=== PATIENT | female | born 1985 | race Caucasian/White ===

== ENCOUNTER 2017-02-17 15:12 | Emergency (ER) | payer BC, OTHER ==
[2017-02-17 16:24] VITALS: BP 103/56
--- NOTE | 2017-02-17 17:08 | UC ---
Throat Pain/Nasal Wilmer HPI - HPI Summary HPI Summary: 31 YEAR OLD FEMALE PRESENTS WITH COMPLAINS SINUS CONGESTION AND HEADACHE. - History of Current Complaint Chief Complaint: UCHeadache Stated Complaint: HEAD COLD Time Seen by Provider: 02/17/17 17:03 Hx Obtained From: Patient Hx Last Menstrual Period: 02/02/17 Onset/Duration: Sudden Onset Severity: Moderate Pain Scale Used: 0-10 Numeric - 5 Cough: Nonproductive - Allergies/Home Medications Allergies/Adverse Reactions: Allergies Allergy/AdvReac Type Severity Reaction Status Date / Time No Known Allergies Allergy Verified 08/21/12 12:03 Home Medications: Home Medications Sertraline* [Zoloft*] 50 mg PO BEDTIME 02/17/17 [History Confirmed 02/17/17] PMH/Surg Hx/FS Hx/Imm Hx Previously Healthy: Yes - Surgical History Surgical History: None - Social History Alcohol Use: None Substance Use Type: None Smoking Status (MU): Never Smoked Tobacco - Immunization History Most Recent Tetanus Shot: may, 2012 Review of Systems Constitutional: Negative Skin: Negative Eyes: Negative ENT: Negative Respiratory: Negative Cardiovascular: Negative Gastrointestinal: Negative Genitourinary: Negative Motor: Negative Neurovascular: Negative Musculoskeletal: Negative Neurological: Negative Psychological: Negative All Other Systems Reviewed And Are Negative: Yes Physical Exam Triage Information Reviewed: Yes Vital Signs: Initial Vital Signs Temp 36.6 C 02/17/17 16:21 Pulse 68 02/17/17 16:21 Resp 14 02/17/17 16:21 BP 103/56 02/17/17 16:21 Pulse Ox 98 02/17/17 16:21 Vital Signs Reviewed: Yes Eye Exam: Normal ENT: Positive: Pharyngeal erythema, Nasal congestion, Nasal drainage Dental Exam: Normal Neck exam: Normal Neck: Positive: 1 Respiratory Exam: Normal Cardiovascular Exam: Normal Abdominal Exam: Normal Musculoskeletal Exam: Normal Neurological Exam: Normal Psychological Exam: Normal Skin Exam: Normal Throat Pain/Nasal Course/Dx - Differential Dx/Diagnosis Provider Diagnoses: NASAL CONGESTION. SINUSITIS. PHARYNGEAL ERYTHEMA Discharge - Discharge Plan Condition: Stable Disposition: HOME Prescriptions: Amoxicillin/Clavulanate TAB* [Augmentin TAB 875*] 875 mg PO BID #20 tab Fluticasone NASAL * [Flonase *] 2 spray BOTH NARES DAILY #1 bottle Patient Education Materials: Sinusitis (ED) Forms: *Work Release Referrals: Buster Castillo MD [Primary Care Provider] -
== END 2017-02-17 17:20 | disposition home or self-care (01) ==
LOC: UCCORT 15:12
DX: J32.9 Chronic sinusitis, unspecified (principal)
CPT/HCPCS: 99202; G0463

== ENCOUNTER 2018-11-20 15:12 | Emergency (ER) | payer BC ==
[2018-11-20 15:29] VITALS: BP 104/69
--- NOTE | 2018-11-20 15:44 | UC ---
Ear Complaint HPI - HPI Summary HPI Summary: Pt presents with c/o of worsening left ear and jaw pain that began ~ 1 week ago. Pt has been taking OTC NSAIDS with little to no improvement. Pt has not been to a dentist in " along time" and is going to establish care with a dentist soon. Pt is concerned that she has an ear infection. - History of Current Complaint Chief Complaint: UCEar Stated Complaint: LEFT EAR CONCERN Time Seen by Provider: 11/20/18 15:35 Hx Obtained From: Patient Hx Last Menstrual Period: 11/07/18 ?: No Onset/Duration: Lasting Days, Still Present Severity Initially: Mild Severity Currently: Moderate Pain Intensity: 4 Aggravating Factors: Nothing Alleviating Factors: Nothing - Allergies/Home Medications Allergies/Adverse Reactions: Allergies Allergy/AdvReac Type Severity Reaction Status Date / Time diphenhydramine AdvReac "I get Verified 11/20/18 15:25 [From Benadryl] super hyper." Home Medications: Home Medications Acetaminophen [Acetaminophen Extra Strength] 1,000 mg PO Q6H PRN 11/20/18 [ History Confirmed 11/20/18] Ibuprofen TAB* [Advil TAB*] 600 mg PO Q6H PRN 11/20/18 [History Confirmed ] PMH/Surg Hx/FS Hx/Imm Hx Previously Healthy: Yes - Surgical History Surgical History: None - Family History Known Family History: Positive: Cardiac Disease - Social History Occupation: Employed Full-time Lives: With Family Alcohol Use: None Substance Use Type: None Smoking Status (MU): Never Smoked Tobacco - Immunization History Most Recent Tetanus Shot: may, 2012 Vaccination Up to Date: Yes Review of Systems All Other Systems Reviewed And Are Negative: Yes Constitutional: Positive: Negative Skin: Positive: Negative Eyes: Positive: Negative ENT: Positive: Dental Pain, Ear Ache Respiratory: Positive: Negative Cardiovascular: Positive: Negative Gastrointestinal: Positive: Negative Genitourinary: Positive: Negative Motor: Positive: Negative Neurovascular: Positive: Negative Musculoskeletal: Positive: Negative Neurological: Positive: Negative Psychological: Positive: Negative Is Patient Immunocompromised?: No Physical Exam Triage Information Reviewed: Yes Appearance: Well-Appearing Vital Signs: Initial Vital Signs Temp 98.9 F 11/20/18 15:23 Pulse 76 11/20/18 15:23 Resp 16 11/20/18 15:23 BP 104/69 11/20/18 15:23 Pulse Ox 99 11/20/18 15:23 Vital Signs Reviewed: Yes Eye Exam: Normal ENT Exam: Normal ENT: Positive: Normal ENT inspection, Hearing grossly normal Dental Exam: Normal Neck exam: Normal Respiratory Exam: Normal Cardiovascular Exam: Normal Musculoskeletal Exam: Normal Neurological Exam: Normal Psychological Exam: Normal Skin Exam: Normal Ear Complaint Course/Dx - Differential Dx/Diagnosis Differential Diagnosis/HQI/PQRI: Otitis Externa, Otitis Media, TMJ Syndrome, Trigeminal Nueralgia, URI Provider Diagnosis: Left ear pain Discharge - Sign-Out/Discharge Documenting (check all that apply): Patient Departure All imaging exams completed and their final reports reviewed: No Studies - Discharge Plan Condition: Stable Disposition: HOME Patient Education Materials: Earache (ED), Cold Compress or Soak (ED) Referrals: Portia Noguera [Primary Care Provider] - If Needed Additional Instructions: Please follow up with your PCP and dental care provider as soon as possible. - Billing Disposition and Condition Condition: STABLE Disposition: Home
== END 2018-11-20 15:53 | disposition home or self-care (01) ==
LOC: UCCORT 15:12
DX: H92.02 Otalgia, left ear (principal)
CPT/HCPCS: 99211; G0463